=== PATIENT | male | born 1950 | race Caucasian/White ===

== ENCOUNTER 2021-05-10 12:52 | Emergency (ER) | payer OTHER ==
[~2021-05-10] VITALS: Ht 185.4 cm; Wt 114.8 kg
[~2021-05-10 12:52] MED LIST: ASPIRIN 325MG325 MG PO; CINNAMON500 MG PO; CLARITIN10 M2 PO; CRANBERRY250 MG PO; CRESTOR10 MG PO; GLUCOPHAGE 500500 MG PO; GLUCOSAMINE S1000 M2 PO; GLUCOTROL5 MG PO; MAGNESIUM500 MG PO; MAVIK2 MG PO; PLAVIX 75 MG TA75 MG PO; TOPROL XL50 MG PO
== END 2021-05-10 16:05 | disposition home or self-care (01) ==
LOC: ER1 12:52
DX: U07.1 COVID-19 (principal); E11.9 Type 2 diabetes mellitus without complications; I10 Essential (primary) hypertension; I25.2 Old myocardial infarction; Z23 Encounter for immunization
CPT/HCPCS: 99283; M0243

== ENCOUNTER → 2022-02-06 | Outpatient (CLI) | payer OTHER, MEDICARE ==
[2022-02-06 07:58] LABS: HEMOGLOBIN 15.7 gm/dl (14.0-17.5); RED BLOOD COUNT 5.12 M/UL (4.20-5.50); WHITE BLOOD COUNT 7.4 K/UL (4.5-11.0)
[2022-02-06 08:30] LABS: BUN/CREATININE RATIO 28 (0-10)
[2022-02-07 09:10] LABS: VITAMIN D, 25-HYDROXY 40.7 ng/mL (30.0-100.0)
[2022-02-07 12:10] LABS: THYROXINE (T4) 8.9 ug/dL (4.5-12.0)
== END ==
LOC: LAB 07:27
PROVIDERS: Nurse Practitioner
DX: Z12.5 Encounter for screening for malignant neoplasm of prostate (principal); E11.9 Type 2 diabetes mellitus without complications; I10 Essential (primary) hypertension; E78.5 Hyperlipidemia, unspecified; M10.9 Gout, unspecified; R53.83 Other fatigue; E55.9 Vitamin D deficiency, unspecified
CPT/HCPCS: 80053; 80061; 81001; 83036; 84153; 84436; 84443; 84481; 84550; 85025; G0103